=== PATIENT | female | born 1955 | race Caucasian/White ===

== ENCOUNTER 2019-01-04 22:59 | Emergency (ER) | payer MEDICARE, SELFPAY ==
[2019-01-04 23:01] VITALS: BP 153/83; PULSE 70; RESP 12; TEMP 36.6; O2SAT 100
--- NOTE | 2019-01-04 23:12 | ED.AMS ---
HPI - Altered Mental Status General Chief Complaint: Toxicology Problem Stated Complaint: Fall Time Seen by Provider: 01/04/19 23:02 Source: patient, family and EMS Mode of arrival: EMS Limitations: altered mental status History of Present Illness HPI narrative: 63-year-old female non smoker presents by EMS for evaluation of altered mental status. The patient was wearing a fentanyl patch which is prescribed to her, took an oxycodone, 1 or 2 mg in and had some alcohol this evening. She is somnolent with decreased responsiveness and had a very slow low velocity fall and denies any injuries as a consequence. She takes no blood thinners. Bls reports a GCS of 11, she was not given any Narcan or other reversal agents. These prescriptions were all prescribed to her. She denies any desire to hurt herself MD complaint: altered mental status Onset (ago): hour(s) Timing confirmed by: spouse Severity: moderate Associated symptoms: denies other symptoms Related Data Allergies Allergy/AdvReac Type Severity Reaction Status Date / Time No Known Drug Allergies Allergy Verified 01/04/19 23:31 Review of Systems Constitutional Denies chills, Reports daytime sleepiness, Reports fatigue, Denies fever(s), Denies lethargy and Reports weakness Eyes Denies change in vision, Denies eye discharge, Denies irritation and Denies loss of vision ENT Ears, Nose, Mouth, and Throat: Denies change in voice, Denies neck pain and Denies sore throat Cardiovascular Denies chest pain, Denies irregular heart rhythm, Denies lightheadedness, Denies palpitations, Denies dyspnea, Denies dyspnea on exertion and Denies orthopnea Respiratory Denies cough, Denies dyspnea, Denies dyspnea on exertion and Denies wheezing Gastrointestinal Gastrointestinal: Denies abdominal pain, Denies change in bowel habits, Denies diarrhea, Denies nausea and Denies vomiting Genitourinary Denies hematuria, Denies flank pain, Denies urinary incontinence and Denies urinary urgency Musculoskeletal Denies neck pain Integumentary/Breasts Denies pruritus, Denies erythema, Denies rash and Denies wounds Neurologic Reports confusion, Denies loss of vision and Reports weakness Psychiatric Denies anxiety, Reports confusion, Denies depression, Denies homicidal ideation and Denies suicidal ideation Endocrine Reports fatigue and Denies palpitations Hematologic/Lymphatic Denies easy bruising Allergic/Immunologic Denies wheezing Exam Narrative Exam Narrative: GENERAL: 63-year-old female appears stated age, she is obtunded, but will arouse HEAD: Atraumatic. Normocephalic. No temporal or scalp tenderness. EYES: Pupils equal round and reactive. Extraocular motions intact. No scleral icterus. No injection or drainage. ENT: Nose without bleeding, purulent drainage or septal hematoma. Throat without erythema, tonsillar hypertrophy or exudate. Uvula midline. Airway patent. NECK: Trachea midline. No JVD or lymphadenopathy. Supple, nontender, no meningeal signs. CARDIOVASCULAR: Regular rate and rhythm without murmurs, gallops, or rubs. RESPIRATORY: Clear to auscultation. Breath sounds equal bilaterally. No wheezes, rales, or rhonchi. GASTROINTESTINAL: Abdomen soft, non-tender, nondistended. No hepato-splenomegaly, or palpable masses. No guarding. EXTREMITIES: No clubbing, cyanosis, or edema. No joint tenderness, effusion, or edema noted. BACK: Nontender without deformity or crepitance. No flank tenderness. NEURO: AOx3. SLuggish responses, but accurate. No focal findings SKIN: No rash or erythema. Initial Vital Signs Initial Vital Signs: Vital Signs Temperature 97.9 F 01/04/19 23:01 Pulse Rate 70 01/04/19 23:01 Respiratory Rate 12 01/04/19 23:01 Blood Pressure 153/83 H 01/04/19 23:01 Pulse Oximetry 100 01/04/19 23:01 Scores GCS William coma scale eye opening: To sound William coma scale verbal response: Confused William coma scale motor response: Localising William coma scale total score: 12 Course Orders Ordered: ED Orders 01/04/19 23:12 Urine Drug Screen, Rapid Stat 01/04/19 23:13 CT head/brain wo con Stat 01/04/19 23:58 Acetaminophen Stat Complete Blood Count AUTO DIFF Stat Comprehensive Metabolic Panel Stat Ethanol (ETOH) Stat Salicylate Stat Reevaluation(s) Reevaluation #1: patient continues to rest comfortably, sleeping deeply, arousable Vital Signs - 8 hr 01/04/19 23:01 01/05/19 00:55 01/05/19 02:00 Temperature 97.9 F Pulse Rate 70 64 65 Respiratory Rate 12 9 L 14 Blood Pressure 153/83 H Blood Pressure [Right Arm] 119/83 124/89 Pulse Oximetry 100 97 100 01/05/19 02:30 Temperature Pulse Rate 63 Respiratory Rate 8 L Blood Pressure Blood Pressure [Right Arm] 125/88 Pulse Oximetry 98 MDM - Altered Mental Status Lab Data Result diagrams: 01/04/19 23:58 01/04/19 23:58 Lab Results 01/04/19 01/04/19 01/04/19 Range/Units 23:58 23:58 23:58 WBC 7.2 (4.5-11.0) X10^3/uL RBC 4.20 (4.0-5.2) X10^6/uL Hgb 12.1 (12.0-16.0) g/dL Hct 36.7 (36-46) % MCV 87.2 (80-100) fL MCH 28.9 (26-34) PG MCHC 33.1 (30-36) % RDW 14.8 (11.6-14.8) % Plt Count 150 (150-400) X10^3/uL Neut % (Auto) 60.3 (50-75) % Lymph % (Auto) 26.7 (25-40) % [place]christ % (Auto) 10.2 (3-14) % Eos % (Auto) 2.0 (2-4) % Baso % (Auto) 0.8 (0-2) % Neut # (Auto) 4300 (2617-7070) /uL Lymph # (Auto) 1900 (4822-7374) /uL Gilchrist # (Auto) 700 (0-900) /uL Eos # (Auto) 100 (0-450) /uL Baso # (Auto) 100 (0-100) /uL Sodium 140 (137-145) mmol/L Potassium 4.1 (3.4-5.1) mmol/L Chloride 103 (98-107) mmol/L Carbon Dioxide 30 (22-32) mmol/L BUN 16 (7-17) mg/dL Creatinine 0.80 (0.52-1.04) mg/dL Estimated GFR > 60.0 (>60) mL/min BUN/Creatinine Ratio 20.0 (6-22) Glucose 95 (80-110) mg/dL Calcium 9.2 (8.4-10.2) mg/dL Total Bilirubin 0.3 (0.2-1.3) mg/dL AST 49 H (14-36) IU/L ALT 27 (9-52) IU/L Alkaline Phosphatase 66 (38-126) U/L Total Protein 8.3 H (6.3-8.2) g/dL Albumin 4.4 (3.5-5.0) g/dL Globulin 3.9 (1.7-4.1) g/dL Albumin/Globulin Ratio 1.1 (1.0-2.8) Salicylates < 1.0 (<20) mg/dL Acetaminophen < 10 L (10-30) ug/mL Ethyl Alcohol < 10 mg/dL Urine Dip Bedside Urine Glucose Negative Bedside Urine Bilirubin - Negative Bedside Urine Ketone - Negative Urine Specific [place] 1.015 Bedside Urine Occult Blood - Negative Bedside Urine pH 6.0 Bedside Urine Protein - Negative Bedside Urine Urobilinogen - Negative Bedside Urine Nitrite - Negative Bedside Urine Leukocytes - Negative Esterase Imaging Data CT scan - head: Radiologist's impression: No significant abnormalities Discharge Plan Departure Patient Disposition: Home Clinical Impression: Encephalopathy, toxic Accidental overdose Qualifiers: Encounter type: initial encounter Qualified Code(s): T50.901A - Poisoning by unspecified drugs, medicaments and biological substances, accidental (unintentional), initial encounter Discharge Date/Time: 01/05/19 06:25 Interventions: ED Discharge Assessment Last Done: 01/05/19 06:25 Instructions: DI for Drug Overdose in Adults Activity Restrictions/Additional Instructions: *You have been diagnosed with [accidental polysubstance overdose ] *What to do: *Take medications as directed *Follow up with your primary care provider in 2-3 days, call for an appointment. Let them know you were seen in the Emergency Department and that we ask that you be seen in follow up *Return to ER if you should have any new, worsening or concerning symptoms
--- NOTE | 2019-01-04 23:13 | DI.CT.S_ITS ---
PROCEDURE: CT HEAD/BRAIN WO CON INDICATIONS: Acute altered mental status TECHNIQUE: Noncontrast 4.5 mm thick angled axial sections acquired from the foramen magnum to the vertex, with coronal and sagittal reformats. For radiation dose reduction, the following was used: automated exposure control, adjustment of mA and/or kV according to patient size. COMPARISON: None. FINDINGS: Image quality: Excellent. CSF spaces: Basal cisterns are patent. No extra-axial fluid collections. The ventricles are symmetric in size and shape. Brain: No intracranial bleeds or masses. There is mild cerebral volume loss for age, with resultant ventricular and sulcal prominence. There are minimal periventricular and deep white matter chronic small vessel ischemic changes. Skull and face: Calvarium and visualized facial bones appear intact, without suspicious lesions. Sinuses: Visualized sinuses and mastoids are clear. IMPRESSION: No acute intracranial disease process. Final interpretation is concordant with preliminary interpretation. Dictated by: Natalie Fajardo MD, PhD on 01/05/2019 at 8:21 Approved by: Natalie Fajardo MD, PhD on 01/05/2019 at 8:25
--- NOTE | 2019-01-04 23:44 | PC.NURSE ---
Pt concerned pt may have accidentally took 2 Ambien tonight. Pt is on vacation from [place], reports pt was drowsy and acting argumentative like she normally does after she takes Ambien then watched her take an Ambien so is concerned she may have already had one prior to the one he saw her take. Pt also reports pt takes oxycodone and has a 25 mcg fetanyl patch for chronic spinal pain. Pt drowsy, arousable to sound, able to answer questions and follow commands. Oriented to self and place. Fetanyl patch removed from pt left shoulder upon arrival.
[2019-01-05 00:11] LABS: Add Manual Diff / Slide Review NO; Basophils Absolute Auto 100 /uL (0-100); Basophils Percent Auto 0.8 % (0-2); Eosinophils Absolute Auto 100 /uL (0-450); Hematocrit 36.7 % (36-46); Hemoglobin 12.1 g/dL (12.0-16.0); Lymphocytes Absolute Auto 1900 /uL (1100-4500); Lymphocytes Percent Auto 26.7 % (25-40); Mean Corpuscular HGB Conc 33.1 % (30-36); Mean Corpuscular Hemoglobin 28.9 PG (26-34); Mean Corpuscular Volume 87.2 fL (80-100); Monocytes Absolute Auto 700 /uL (0-900); Monocytes Percent Auto 10.2 % (3-14); Neutrophils Absolute Auto 4300 /uL (1500-7000); Neutrophils Percent Auto 60.3 % (50-75); Platelet Count 150 X10^3/uL (150-400); Red Cell Distribution Width 14.8 % (11.6-14.8); White Blood Cell Count 7.2 X10^3/uL (4.5-11.0)
[2019-01-05 00:17] LABS: Alanine Aminotransferase 27 IU/L (9-52); Albumin 4.4 g/dL (3.5-5.0); Albumin Globulin Ratio 1.1 (1.0-2.8); Alkaline Phosphatase 66 U/L (38-126); Aspartate Aminotransferase 49 IU/L (14-36); Bilirubin Total 0.3 mg/dL (0.2-1.3); Blood Urea Nitrogen 16 mg/dL (7-17); Calcium 9.2 mg/dL (8.4-10.2); Carbon Dioxide 30 mmol/L (22-32); Chloride 103 mmol/L (98-107); Estimated Glomerular Filt Rate > 60.0 mL/min (>60); Globulin 3.9 g/dL (1.7-4.1); Glucose 95 mg/dL (80-110); HEMOLYSIS < 15 (0-50); Potassium 4.1 mmol/L (3.4-5.1); Sodium 140 mmol/L (137-145); Total Protein 8.3 g/dL (6.3-8.2)
[2019-01-05 00:22] LABS: Acetaminophen < 10 ug/mL (10-30); Ethanol (ETOH) < 10 mg/dL; Salicylate < 1.0 mg/dL (<20)
[2019-01-05 00:55] VITALS: BP 119/83; PULSE 64; RESP 9; O2SAT 97
[2019-01-05 02:00] VITALS: BP 124/89; PULSE 65; RESP 14; O2SAT 100
[2019-01-05 02:30] VITALS: BP 125/88; PULSE 63; RESP 8; O2SAT 98
[2019-01-05 03:30] VITALS: BP 104/78; PULSE 60; RESP 18; O2SAT 97
[2019-01-05 05:06] VITALS: BP 102/61; PULSE 56; RESP 16; O2SAT 98
[2019-01-05 06:00] VITALS: BP 121/71; PULSE 68; RESP 15; O2SAT 99
== END 2019-01-05 06:25 | disposition home or self-care (01) ==
PROVIDERS: Emergency Provider Emergency Medicine
DX: T50.901A Poisoning by unspecified drugs, medicaments and biological substances, accidental (unintentional), initial encounter (principal); G92 Toxic encephalopathy; W19.XXXA Unspecified fall, initial encounter
CPT/HCPCS: 36415; 70450; 80053; 80320; 80329; 81003; 85025; 99283; 99284; G0480